=== PATIENT | male | born 2000 | race Caucasian/White ===

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

== ENCOUNTER 2021-10-26 13:51 | Emergency (ER) | payer OTHER, BC ==
[~2021-10-26] VITALS: Ht 170.2 cm; Wt 50.0 kg
[~2021-10-26 13:51] MED LIST: ONDANSETRON4 MG PO
[2021-10-26] MEDS ORDERED: FLEXERIL5 M1 PO (17:58)
[2021-10-26 18:27] VITALS: BP 128/81
== END 2021-10-26 18:28 | disposition home or self-care (01) | DRG 552 ==
LOC: ED 13:51
DX: S16.1XXA Strain of muscle, fascia and tendon at neck level, initial encounter (principal); S29.012A Strain of muscle and tendon of back wall of thorax, initial encounter; V43.53XA Car driver injured in collision with pick-up truck in traffic accident, initial encounter